=== PATIENT | male | born 1995 | race Caucasian/White ===

== ENCOUNTER 2020-10-22 07:28 | Outpatient (CLI) | payer BC, SELFPAY ==
--- NOTE | 2020-10-22 07:30 | XR_ITS ---
WS: [id number] ABDOMEN: SUPINE FILM HISTORY: KIDNEY STONE COMPARISON: 10/13/2020 Normal bowel gas pattern. No bone abnormalities. Right kidney: 3.6 mm calcification is unchanged in the mid kidney. No additional calcifications. Left kidney: No renal or ureteral stone identified. XR/XR KUB [id number] IMPRESSION: RIGHT renal calcification unchanged.
== END 2020-10-22 07:29 | disposition home or self-care (01) ==
LOC: RAD 07:36
PROVIDERS: PCP Nurse Practitioner Family; Visit Provider Urology
DX: N20.0 Calculus of kidney (principal)
CPT/HCPCS: 74018

== ENCOUNTER 2020-10-27 08:39 | Outpatient (CLI) | payer BC, SELFPAY ==
--- NOTE | 2020-10-27 10:30 | CT_ITS ---
WS: [id number] CT ABDOMEN PELVIS TECHNIQUE: Noncontrast CT of the abdomen and pelvis with coronal and sagittal reformatted images. CLINICAL INFORMATION: HX OF KIDNEY STONES COMPARISON: None. DLP: 1053.[address] scans at [facility] use at least one of these dose optimization techniques: automat ed exposure control; mA and/or kV adjustment per patient size (includes targeted exams where dose is matched to clinical indication); or iterative reconstruction. FINDINGS: Noncontrast liver is normal. Noncontrast spleen is normal. Lung bases are well aerated. Noncalcified pulmonary nodule left lower lobe laterally measuring 5 mm. Adrenal glands are normal. No hydronephros is. No obstructing renal or ureteral calculi. A few tiny nonobstructing calyceal tip calculi. Normal caliber abdominal aorta. No abdominal lymphadenopathy. No pelvic or inguinal lymphadenopathy. Incidental fat-containing umbilical hernia. CT/CT kidney stone [id number] IMPRESSION: 1. No obstructing renal or ureteral calculi. No hydronephrosis. 2. 5 mm noncalcified nodule left lower lobe laterally measuring 5 mm. Recommen d 6 month follow-up. 3. A few tiny nonobstructing calyceal tip calculi bilaterally. 4. Incidental fat-containing umbilical hernia.
== END 2020-10-27 08:40 | disposition home or self-care (01) ==
LOC: RAD 08:40
PROVIDERS: PCP Nurse Practitioner Family; Visit Provider Nurse Practitioner Family
DX: Z87.442 Personal history of urinary calculi (principal); R91.1 Solitary pulmonary nodule; K42.9 Umbilical hernia without obstruction or gangrene
CPT/HCPCS: 74176

== ENCOUNTER → 2020-10-29 09:47 | Outpatient (BNVA) | payer BC, SELFPAY | PROVIDERS: PCP Nurse Practitioner Family; Visit Provider Urology | DX: N20.9 Urinary calculus, unspecified (principal) | CPT/HCPCS: 81003 ==

== ENCOUNTER 2020-11-10 08:09 | Outpatient (CLI) | payer BC, SELFPAY ==
--- NOTE | 2020-11-10 08:14 | FL_ITS ---
WS: [id number] ESOPHAGRAM WITH FLUOROSCOPY HISTORY: GASTROESOPHAGEAL REFLUX DISEASE, DYSPHAGIA COMPARISON: None available. FLUOROSCOPY TIME: 1.2 minutes. Esophagus and swallowing function: Patient swallowed the barium mixture without difficulty. No strict ures or mucosal abnormalities are identified. Barium tablet was swallowed without difficulty. Gastroesophageal reflux: None. Hiatal hernia: No hiatal hernia. FL/FL barium swallow [id number] IMPRESSION: 1. Normal esophagram.
== END 2020-11-10 08:10 | disposition home or self-care (01) ==
PROVIDERS: PCP Nurse Practitioner Family; Visit Provider Otolaryngology
DX: K21.9 Gastro-esophageal reflux disease without esophagitis (principal); R13.12 Dysphagia, oropharyngeal phase
CPT/HCPCS: 74220

== ENCOUNTER 2022-12-30 21:23 | Emergency (ER) | payer BC, SELFPAY ==
--- NOTE | 2022-12-30 21:26 | XRR_ITS ---
PROCEDURE INFORMATION: Exam: XR Chest Exam date and time: 12/30/2022 9:32 PM Age: 27 years old Clinical indication: Pain; Chest pressure; Additional info: Cp TECHNIQUE: Imaging protocol: Radiologic exam of the chest. Views: 1 view. COMPARISON: CR XR chest 2V* [id number] 05/31/2022 11:09 AM FINDINGS: Lungs: Unremarkable. No consolidation. Pleural spaces: Unremarkable. No pleural effusion. No pneumothorax. Heart/Mediastinum: Unremarkable. No cardiomegaly. Bones/joints: Unremarkable. XR/XR chest 1V portable [id number] IMPRESSION: Unremarkable
[2022-12-30 21:35] VITALS: BP 177/125; PULSE 88; RESP 14; TEMP 36.7; O2SAT 100
--- NOTE | 2022-12-30 21:44 | ECG_ITS ---
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 Measurements Intervals [place] Rate: 90 P: 78 LA: 126 QRS: 77 QRSD: 97 T: 59 QT: 338 QTc: 414 Interpretive Statements SINUS RHYTHM NONSPECIFIC T-WAVE ABNORMALITY No previous ECG available for comparison Electronically Signed On 12-31-2022 19:43:46 CDT by Kane Wade M.D. [id number]
[2022-12-30 22:00] LABS: Basophils % 0.5 %; Eosinophils # 0.3 10^3/uL (0.0-0.8); Eosinophils % 3.3 %; Hematocrit 43.7 % (42.0-52.0); Hemoglobin 13.8 g/dL (11.7-16.6); Lymphocytes # 3.1 10^3/uL (0.8-4.8); Lymphocytes % 38.1 %; Mean Corpuscular HGB Conc 31.6 g/dL (30.0-36.0); Mean Corpuscular Hemoglobin 24.7 pg (28.0-34.0); Mean Corpuscular Volume 78.2 fl (80-94); Mean Platelet Volume 9.4 fL (7.4-10.4); Monocytes # 0.6 10^3/uL (0.2-0.9); Neutrophils # 4.19 10^3/uL (1.8-7.7); Neutrophils % 50.9 %; Nucleated Red Blood Cells % 0 %; Platelet Count 345 10^3/cmm (130-400); Red Blood Count 5.59 10^6/uL (4.1-5.3); Red Cell Distribution Width 14.6 % (12.1-15.1); White Blood Count 8.2 10^3/uL (4.0-10.0)
--- NOTE | 2022-12-30 22:20 | W.ED.CHESTPA ---
HPI - Chest Pain General: Chief Complaint: Chest Pain Stated Complaint: chest pain Time Seen by Provider: 12/30/22 22:07 History of Present Illness: 27-year-old male patient comes in today with complaints of abdominal pain midepigastric radiating through to his back. Patient reports the pains been on and off for about 3 weeks. Patient has been trying muscle rub with some relief. Patient has a history of alcoholism, and peptic ulcer disease. Patient appears nontoxic. Patient appears in no pain at this time. Associated symptoms: Reports abdominal pain (Intermittent) and nausea; Deny dyspnea, fever(s) or vomiting Review of Systems General: Reports: 10 or more systems reviewed and unremarkable except in HPI and below Const: Denies: fever(s) Card: Reports: chest pain Resp: Denies: dyspnea GI: Reports: abdominal pain (Intermittent) and nausea; Denies: vomiting, diarrhea or constipation : Denies: flank pain Musc: Denies: back pain PFSH ED PFSH: Medical History Alcoholic gastritis Chronic GERD Urolithiasis Family History Father Hypertension Social History Smoking and tobacco status: former smoker Alcohol intake: current Alcohol intake frequency: holidays/special occasions only Alcohol type: hard liquor Substance/Drug Use: never Marital status: Single Current occupational status: employed Physical Exam Const: COMMON NORMALS: alert HENMT: COMMON NORMALS: normocephalic HEAD & SCALP: normocephalic Neck/C-Spine: COMMON NORMALS: full ROM Chest: COMMONS NORMALS: normal inspection of the chest Resp: COMMON NORMALS: normal respiratory effort and clear to auscultation bilaterally AUSCULTATION: clear to auscultation bilaterally Cardio: COMMON NORMALS: regular rate RATE: regular rate GI: COMMON NORMALS: Soft to palpation and non-tender PALPATION: Yes Soft to palpation : COMMON NORMALS: Yes no CVA tenderness BLADDER/KIDNEY EXAM: Yes no CVA tenderness Back/Pelvis: COMMON NORMALS: no CVA tenderness and thoracic and lumbar spine normal to inspection Extremity: COMMON NORMALS: normal to inspection Neuro: SENSORIUM/ORIENTATION: Yes alert Skin: COMMON NORMALS: turgor normal GENERAL SKIN EXAM: turgor normal Course Vital Signs: Vital signs: Vital Signs Temperature 98.1 F 12/30/22 21:35 Pulse Rate 88 12/30/22 21:35 Respiratory Rate 14 12/30/22 21:35 Blood Pressure 177/125 12/30/22 21:35 Pulse Oximetry 100 12/30/22 21:35 Oxygen Delivery Me thod Room Air 12/30/22 21:35 MDM - Chest Pain Medical Decision Making 27-year-old male patient comes in today for complaints of abdominal pain radiating into his chest and back. On exam patient has soft abdomen with no eliciting pain to palpation. Patient reports the pain is intermittent and he does not have any at this time. Differential diagnosis includes but not limited to gallstones, pancreatitis, gastritis, constipation, bowel obstruction, renal calculi, ACS. Troponin baseline was negative. EKG was unremarkable. The remainder of labs showed no significant abnormalities. No obvious signs of biliary obstruction. KUB noted a large amount of gas in the bowel. Chest x-ray was normal. Believe the patient might have some gastritis we will go ahead and start him on some pantoprazole daily to see if we can get better control of his discomfort and use hyoscyamine as needed for spasms. Patient reported understanding of care plan and need for follow-up with primary care. Lab Data 12/30/22 21:50 12/30/22 21:50 Radiology Impressions Chest X-Ray 12/30/22 21:26 IMPRESSION: Unremarkable KUB X-Ray 12/30/22 22:34 IMPRESSION: Predominantly gaseous distention of the colon. No generalized obstruction Laboratory Results WBC 8.2 10^3/uL (4.0-10.0) 12/30/22 21:50 RBC 5.59 10^6/uL (4.1-5.3) H 12/30/22 21:50 Hgb 13.8 g/dL (11.7-16.6) 12/30/22 21:50 Hct 43.7 % (42.0-52.0) 12/30/22 21:50 MCV 78.2 fl (80-94) L 12/30/22 21:50 MCH 24.7 pg (28.0-34.0) L 12/30/22 21:50 MCHC 31.6 g/dL (30.0-36.0) 12/30/22 21:50 RDW 14.6 % (12.1-15.1) 12/30/22 21:50 Plt Count 345 10^3/cmm (130-400) 12/30/22 21:50 MPV 9.4 fL (7.4-10.4) 12/30/22 21:50 Neut % (Auto) 50.9 % 12/30/22 21:50 Lymph % (Auto) 38.1 % 12/30/22 21:50 [place] % (Auto) 7.0 % 12/30/22 21:50 Eos % (Auto) 3.3 % 12/30/22 21:50 Baso % (Auto) 0.5 % 12/30/22 21:50 Neut # (Auto) 4.19 10^3/uL (1.8-7.7) 12/30/22 21:50 Lymph # (Auto) 3.1 10^3/uL (0.8-4.8) 12/30/22 21:50 [place] # (Auto) 0.6 10^3/uL (0.2-0.9) 12/30/22 21:50 Eos # (Auto) 0.3 10^3/uL (0.0-0.8) 12/30/22 21:50 Baso # (Auto) 0.0 10^3/uL (0.0-0.1) 12/30/22 21:50 Nucleated RBC % (auto) 0 % 12/30/22 21:50 Nucleated RBCs # 0.0 /100WBC 12/30/22 21:50 Sodium 137 mmol/L (136-145) 12/30/22 21:50 Potassium 4.0 mmol/L (3.5-5.1) 12/30/22 21:50 Chloride 102 mmol/L (98-107) 12/30/22 21:50 Carbon Dioxide 22 mmol/L (22-29) 12/30/22 21:50 Anion Gap 17.0 (5-19) 12/30/22 21:50 BUN 13 mg/dL (6-20) 12/30/22 21:50 Creatinine 0.9 mg/dL (0.7-1.2) 12/30/22 21:50 GFR Calculation 99.8 mL/min (90-130) 12/30/22 21:50 Glucose 85 mg/dL (65-115) 12/30/22 21:50 Calculated Osmolality 283 mOsm/kg (285-295) L 12/30/22 21:50 Calcium 9.0 mg/dL (8.5-10.5) 12/30/22 21:50 Total Bilirubin 0.3 mg/dL (0.15-1.2) 12/30/22 21:50 AST 12 U/L (0-40) 12/30/22 21:50 ALT 14 U/L (0-41) 12/30/22 21:50 Alkaline Phosphatase 57 U/L (40-130) 12/30/22 21:50 Troponin T Baseline 6 ng/L (0-15) 12/30/22 21:50 Total Protein 7.5 g/dL (6.6-8.7) 12/30/22 21:50 Albumin 4.3 g/dL (3.5-5.2) 12/30/22 21:50 Globulin 3.2 g/dL (1.3-4.6) 12/30/22 21:50 Lipase 23 U/L (13-60) 12/30/22 21:50 Discharge Plan Discharge Patient Disposition: Home Clinical Impression: Non-cardiac chest pain Condition: Stable Prescriptions: New hyoscyamine sulfate 0.125 mg tablet 0.125 mg PO Q8H PRN (Reason: abdominal pain) Qty: 20 0RF pantoprazole 20 mg tablet,delayed release (DR/EC) 20 mg PO DAILY Qty: 30 0RF No Action Zyrtec 10 mg capsule 10 mg PO DAILY PRN tamsulosin [Flomax] 0.4 mg capsule 0.4 mg PO DAILY imiquimod 5 % cream in packet topical amoxicillin 875 mg tablet 875 mg PO BID 10 Days Qty: 20 0RF esomeprazole magnesium 40 mg capsule,delayed release(DR/EC) 40 mg PO BID Discharge Orders: Discharge ED (Routine); Ordered 12/30/22 Ordered By: Taran Mendez Referrals: Karly Dudley FNP [Primary Care Provider] - Discharge Diet: Usual diet Discharge Activity: Increase activity as tolerated Patient Instructions: Abdominal Pain (ED) Activity Restrictions/Additional Instructions: Drink plenty of water and fluids. Take pantoprazole 20 mg 1 tablet daily 30 minutes before your first meal of the day. Use hyoscyamine tablets every 8 hours as needed for abdominal pain and spasms. Follow-up with primary care in 3 to 5 days. Return to ED for worsening symptoms such as blood in vomit or stool, high fever greater than 100.4, increased shortness of breath, or new concerns. 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
[2022-12-30 22:34] LABS: Troponin(5th) Baseline 6 ng/L (0-15)
--- NOTE | 2022-12-30 22:34 | XRR_ITS ---
PROCEDURE INFORMATION: Exam: XR Abdomen Exam date and time: 12/30/2022 10:42 PM Age: 27 years old Clinical indication: Abdominal pain; Additional info: Abd pain TECHNIQUE: Imaging protocol: Radiologic exam of the abdomen. Views: Frontal supine view of the abdomen. 1 View. COMPARISON: CT kidney stone [id number] 10/27/2020 9:02 AM FINDINGS: Lungs: The lung bases are clear. Gastrointestinal tract: There is moderate gas within the colon and scattered stool. Small bowel is unremarkable. Bones/joints: Unremarkable. XR/XR KUB [id number] IMPRESSION: Predominantly gaseous distention of the colon. No generalized obstruction
[2022-12-30 22:35] LABS: Alanine Aminotransferase 14 U/L (0-41); Albumin Level 4.3 g/dL (3.5-5.2); Alkaline Phosphatase 57 U/L (40-130); Aspartate Amino Transferase 12 U/L (0-40); Blood Urea Nitrogen 13 mg/dL (6-20); Carbon Dioxide 22 mmol/L (22-29); Chloride 102 mmol/L (98-107); Globulin 3.2 g/dL (1.3-4.6); Glomerular Filtration Rate 99.8 mL/min (90-130); Glucose 85 mg/dL (65-115); Lipase 23 U/L (13-60); Osmolality Calculated 283 mOsm/kg (285-295); Sodium 137 mmol/L (136-145); Total Bilirubin 0.3 mg/dL (0.15-1.2); Total Protein 7.5 g/dL (6.6-8.7)
[2022-12-30] MEDS: pantoprazole DR 40 mg Tablet PO (23:16)
[2022-12-30] MEDS: hyoscyamine ODT 0.125 mg Tablet PO (23:16)
[2022-12-30 23:18] VITALS: PULSE 88; RESP 18; O2SAT 98
== END 2022-12-30 23:22 | disposition home or self-care (01) ==
PROVIDERS: Emergency Medicine; Emergency Provider Nurse Practitioner Family; PCP Nurse Practitioner Family
DX: R07.89 Other chest pain (principal); Z87.891 Personal history of nicotine dependence
CPT/HCPCS: 36415; 71045; 74018; 80053; 83690; 84484; 85025; 93005; 99285

== ENCOUNTER 2023-06-29 15:15 | Outpatient (CLI) | payer BC, SELFPAY ==
--- NOTE | 2023-06-29 15:22 | CTR_ITS ---
PROCEDURE INFORMATION: Exam: CT Abdomen Without And With Contrast Exam date and time: 06/29/2023 3:42 PM Age: 28 years old Clinical indication: Patient HX: Recent abnormal egd, malignant tumor of small intestine TECHNIQUE: Imaging protocol: Computed tomography of the abdomen without and with contrast. Radiation optimization: All CT scans at this facility use at least one of these dose optimization techniques: automated exposure control; mA and/or kV adjustment per patient size (includes targeted exams where dose is matched to clinical indication); or iterative reconstruction. Contrast material: OMNI 350; Contrast volume: 95 ml; Contrast route: INTRAVENOUS (IV); COMPARISON: CT kidney stone [id number] 10/27/2020 9:02 AM RADIATION DOSE METRICS: Total DLP (mGy-cm): 585.83 FINDINGS: Liver: Unremarkable Gallbladder and bile ducts: Unremarkable. No ductal dilation. Pancreas: The pancreatic head is inseparable from the soft tissue mass in the pancreaticoduodenal groove. The remainder of the pancreas is grossly unremarkable. Spleen: Unremarkable. Adrenal glands: Unremarkable. Kidneys and ureters: Small nonobstructive renal stones bilaterally measuring up to 3 mm on the right. Otherwise no evidence of renal parenchymal abnormality. No hydronephrosis or evidence of ureteral stone within the field of view. Stomach and bowel: There is a soft tissue masslike density in the region of the pancreaticoduodenal groove with mass effect on the 2nd portion of the duodenum (for example, image 31 of the axial series 5). The mass measures approximate 4 x 4 cm, though the borders of the mass are not well delineated and are indistinct from the pancreatic head. No evidence of obstruction. The appendix is not well visualized, however there are no findings to suggest appendicitis. Intraperitoneal space: No free air. No significant fluid collection. Vasculature: No aneurysmal dilatation or dissection of the aorta. Lymph nodes: There is an enlarged node just inferior to the mass. Few additional prominent gastrohepatic and portacaval nodes. Bones/joints: Unremarkable. No acute fracture. No dislocation. Soft tissues: Unremarkable. CT/CT abdomen wo/w con [id number] IMPRESSION: 1. Soft tissue mass in the pancreaticoduodenal groove with mass effect of the 2nd portion of the duodenum. A subserosal gastrointestinal stromal tumor is a consideration. Follow-up MRI of the abdomen with/without contrast is recommended.
[2023-06-29] MEDS: iohexol 350 mg/mL 500 mL Btl (per mL) PO (15:40)
[2023-06-29] MEDS: iohexol 350 mg/mL 500 mL Btl (per mL) IV (15:40)
== END 2023-06-29 15:16 | disposition home or self-care (01) ==
LOC: RAD 15:15
PROVIDERS: PCP Nurse Practitioner Family; Visit Provider Electrodiagnostic Medicine
DX: C17.9 Malignant neoplasm of small intestine, unspecified (principal); R19.09 Other intra-abdominal and pelvic swelling, mass and lump
CPT/HCPCS: 74170; Q9967

== ENCOUNTER 2025-01-27 23:08 | Emergency (ER) | payer SELFPAY ==
[2025-01-27 23:09] VITALS: BP 125/92; PULSE 90; RESP 25; TEMP 36.6; O2SAT 100; BMI 23.0
--- NOTE | 2025-01-27 23:12 | ECG_ITS ---
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 Measurements Intervals [place] Rate: 95 P: 75 IN: 143 QRS: 81 QRSD: 93 T: 70 QT: 326 QTc: 410 Interpretive Statements SINUS RHYTHM NONSPECIFIC T-WAVE ABNORMALITY INTERPRETATION BASED ON A DEFAULT AGE OF 40 YEARS Compared to ECG 12/30/2022 21:44:25 No significant changes Electronically Signed On 01-28-2025 23:50:42 CDT by Kane Wade M.D. [id number]
--- OUTSIDE RECORDS SUMMARY | 2025-01-27 23:12 | XMS_ITS | Clinical Summary ---
Author Organization [facility] Address [address] [place] [address] Phone Care Team Providers Care Chief Clinical Officer Name Role Phone Unavailable Primary Care Provider Unavailabl e Allergies No known active allergies Medications pantoprazole (PROTONIX) [address] tablet Take one tablet (40 mg total) by mouth one (1) time a day Start BID x 4 days, then daily 30 tablet 10/29/2023 Active Social History Tobacco Use Types Packs/Day Years Used Date Smoking Tobacco: Former Cigarettes Smokeless Tobacco: Never Tobacco Cessation:Counseling Given: Not Answered Alcohol Use Standard Drinks/Week Comments Not Currently 0 (1 standard drink = 0.6 oz pur e alcohol) Sex and Gender Information Value Date Recorded Sex Assigned at Not on file Legal Sex Male 9:29 PM CDT Gender Identity Not on file Sexual Orientation Not on file Last Filed Vital Signs Vital Sign Reading Time Taken Comments Blood Pressure 158/88 10/29/2023 10:17 PM CDT Pulse 83 10/29/2023 10:27 PM CDT Temperature 36.6 C (97.8 F) 10/29/2023 9:33 PM CDT Respiratory Rate 18 10/29/2023 10:27 PM CDT Oxygen Saturation 98% 10/29/2023 10:27 PM CDT Inhaled Oxygen Concentration - - Weight 72.6 kg (160 lb) 10/29/2023 9:33 PM CDT Height 180.3 cm (5' 11 ) 10/29/2023 9:33 PM CDT Body Mass Index 22.32 10/29/2023 9:33 PM CDT Plan of Treatment Health Maintenance Due Date Last Done Comments Annual Depression Screening 2004 Annual Physical 2011 Hepatitis C Antibody Screen 2011 DTap/Tdap/Td Vaccines (1 - Tdap) 2012 Flu Vaccine (#1) 01/26/2025
--- OUTSIDE RECORDS SUMMARY | 2025-01-27 23:12 | XMS_ITS | Clinical Summary ---
Author Organization [facility] Address [address] [place] [address] Phone Care Team Providers Care Watch Assembly Instructor Name Role Phone Unavailable Primary Care Provider Unavailabl e Allergies No known active allergies Medications ondansetron (ZOFRAN ODT) 4 mg Tablet, Rapid Dissolve Take 1 Tablet (4 mg) by mouth every 6 hours as needed for Nausea/Emesis . Dissolve tablet on top of tongue, then swallow with saliva. 4 Tablet 04/24/2023 Active ondansetron (ZOFRAN ODT) 4 mg Tablet, Rapid Dissolve Take 1 Tablet (4 mg) by mouth every 8 hours as needed for Nausea/Emesis . Dissolve tablet on top of tongue, then swallow with saliva. 12 Tablet 04/24/2023 Active Social History Tobacco Use Types Packs/Day Years Used Date Smoking Tobacco: Never Smokeless Tobacco: Never Tobacco Cessation:Counseling Given: Not Answered Alcohol Use Standard Drinks/Week Comments Yes 0 (1 standard drink = 0.6 oz pur e alcohol) Feeling Safe Answer Date Recorded Are you in a relationship wi th someone who hurts you emotionally and/or physically? 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 Gender Identity Not on file Sexual Orientation Not on file Last Filed Vital Signs Vital Sign Reading Time Taken Comments Blood Pressure 143/100 04/24/2023 10:00 PM DEPARTMENTAL SHIPPING CLERK Pulse 88 04/24/2023 10:00 PM DEPARTMENTAL SHIPPING CLERK Temperature 36.2 C (97.1 F) 04/24/2023 8:03 PM DEPARTMENTAL SHIPPING CLERK Respiratory Rate 18 04/24/2023 10:00 PM DEPARTMENTAL SHIPPING CLERK Oxygen Saturation 98% 04/24/2023 10:00 PM DEPARTMENTAL SHIPPING CLERK Inhaled Oxygen Concentration - - Weight 77.1 kg (170 lb) 04/24/2023 8:03 PM DEPARTMENTAL SHIPPING CLERK Height 180.3 cm (5' 11 ) 04/24/2023 8:03 PM DEPARTMENTAL SHIPPING CLERK Body Mass Index 23.71 04/24/2023 8:03 PM DEPARTMENTAL SHIPPING CLERK Plan of Treatment Health Maintenance Due Date Last Done Comments DTAP/TDAP/TD VACCINES (1 - Tdap) 2012 HEPATITIS B VACCINES (1 of 3 - 19+ 3-dose series) 04/28 HPV VACCINES (1 - 3-dose SCDM series) 2020 INFLUENZA VACCINE (#1) 2024 Insurance [employer] TRADITIONAL
--- NOTE | 2025-01-28 00:07 | XRR_ITS ---
PROCEDURE INFORMATION: Exam: XR Chest Exam date and time: 01/28/2025 1:18 AM Age: 29 years old Clinical indication: Pain; Angina pectoris; Additional info: Chest pain TECHNIQUE: Imaging protocol: Radiologic exam of the chest. Views: 1 view. COMPARISON: CR XR chest 1V portable [id number] 12/30/2022 9:32 PM FINDINGS: Lungs: No confluent consolidation. Pleural spaces: No pleural effusion. No pneumothorax is seen. Heart/Mediastinum: The heart is normal in size. Mediastinal contours are within normal limits. Bones/joints: No lytic or blastic lesions. No acute osseous abnormality. Intraperitoneal space: No free air is seen under the diaphragm. XR/XR chest 1V portable [id number] IMPRESSION: No acute pulmonary process.
[2025-01-28 01:22] VITALS: BP 133/101; PULSE 85; O2SAT 99
[2025-01-28 01:25] LABS: Hematocrit 42.4 % (37-53); Hemoglobin 13.70 g/dL (11.27-16.99); Mean Corpuscular HGB Conc 32.3 g/dL (30-55); Mean Corpuscular Hemoglobin 24.9 pg (27-33); Mean Corpuscular Volume 77.0 fl (82-101); Nucleated Red Blood Cells % 0 %; Platelet Count 307 10^3/cmm (157-399); Red Blood Count 5.51 10^6/uL (3.85-5.65); White Blood Count 7.74 10^3/uL (3.29-11.43)
--- NOTE | 2025-01-28 01:25 | W.ED.CHESTPA ---
HPI - Chest Pain General: Chief Complaint: Chest Pain Stated Complaint: CHEST PAINS Time Seen by Provider: 01/28/25 00:06 History of Present Illness: 29-year-old male presents emergency room with complaint of chest pain and epigastric discomfort this been going on for several months he said this previously at the same to resolved he had some workup for it. He previously was a heavy drinker he quit completely. Describes most of his pain is epigastric left upper quadrant radiating to his back denies any medic easy melena hematemesis or coffee-ground masses no cardiac history or history of arrhythmias. Associated symptoms: Reports abdominal pain, nausea and vomiting; Deny dyspnea or fever(s) Related Data Home Medications ?Medication ?Instructions ?Recorded ?Confirmed imiquimod 5 % topical cream packet topical 10/19/20 01/31/21 tamsulosin 0.4 mg capsule (Flomax) 0.4 mg PO DAILY 10/19/20 01/31/21 cetirizine 10 mg capsule (Zyrtec) 10 mg PO DAILY PRN 10/22/20 01/31/21 esomeprazole magnesium 40 mg 40 mg PO BID 10/29/20 01/31/21 capsule,delayed release Previous Rx's ?Medication ?Instructions ?Recorded amoxicillin 875 mg tablet 875 mg PO BID 10 days #20 tabs 01/31/21 hyoscyamine sulfate 0.125 mg tablet 0.125 mg PO Q8H PRN abdominal pain 12/30/22 #20 tabs pantoprazole 20 mg tablet,delayed 20 mg PO DAILY #30 tabs 12/30/22 release pantoprazole 40 mg tablet,delayed 40 mg PO BID 10 days #40 tabs 01/28/25 release (Protonix) sucralfate 1 gram tablet (Carafate) 1 g PO Q6H PRN dyspepsia #30 tabs 01/28/25 Allergies Allergy/AdvReac Type Severity Reaction Status Date / Time No Known Allergies Allergy Verified 01/27/25 23:23 Review of Systems Const: Denies: fever(s) or chills Card: Reports: chest pain Resp: Denies: dyspnea GI: Reports: abdominal pain, nausea and vomiting; Denies: hematemesis, coffee ground emesis, hematochezia or melena : Denies: dysuria, urinary frequency or urinary urgency Musc: Denies: neck pain or back pain Skin/Breast: Denies: rash PFSH ED PFSH: Medical History Urolithiasis Alcoholic gastritis Chronic GERD Family History Father Hypertension Social History (Updated 01/28/25 @ 01:30 by George Roach DO) Smoking and tobacco/nicotine status: former use of tobacco/nicotine Alcohol intake: former Substance/Drug Use: never Marital status: Single Current occupational status: employed Physical Exam Const: COMMON NORMALS: no acute distress GENERAL APPEARANCE: cooperative and comfortable ORIENTATION/CONSCIOUSNESS: Yes awake, Yes oriented to person, Yes oriented to place and Yes oriented to time HENMT: COMMON NORMALS: normocephalic, atraumatic and hearing grossly normal bilaterally HEAD & SCALP: normocephalic and atraumatic Resp: COMMON NORMALS: normal respiratory effort, No retractions, No use of accessory muscles and clear to auscultation bilaterally AUSCULTATION: clear to auscultation bilaterally Cardio: COMMON NORMALS: regular rate, regular rhythm and No murmurs present (Cardio) RATE: regular rate RHYTHM: regular rhythm GI: COMMON NORMALS: Soft to palpation and No hepatosplenomegaly present AUSCULTATION: Yes normoactive bowel sounds PALPATION: Yes Soft to palpation, No Tenderness to palpation present (GI), No Guarding due to palpation present (GI) and Yes No hepatosplenomegaly present Extremity: COMMON NORMALS: normal to inspection, capillary refill normal, no clubbing, cyanosis or edema, no calf tenderness and no pedal edema Neuro: SENSORIUM/ORIENTATION: Yes oriented to person, Yes oriented to place and Yes oriented to time Skin: COMMON NORMALS: no rashes or lesions noted GENERAL SKIN EXAM: no rashes or lesions noted Course Vital Signs: Vital signs: Vital Signs Temperature 97.8 F 01/27/25 23:09 Pulse Rate 90 01/27/25 23:09 Respiratory Rate 25 H 01/27/25 23:09 Blood Pressure 125/92 01/27/25 23:09 Pulse Oximetry 100 01/27/25 23:09 Oxygen Delivery Me thod Room Air 01/27/25 23:09 MDM - Chest Pain Medical Decision Making Patient given Protonix and a GI cocktail will discharge home increase his PPI to 40 twice daily for 10 days then 40 once daily Protonix also give Carafate to use as needed referred to general surgery for possible EGD. His hemoglobin is stable at this point. His BUN not significantly elevated. No evidence of GI bleed Medical Records I reviewed the patient's medical records. Lab Data I reviewed the patient's lab results. 01/28/25 01:05 01/28/25 01:05 Radiology Impressions Chest X-Ray 01/28/25 00:07 IMPRESSION: No acute pulmonary process. Laboratory Results WBC 7.74 10^3/uL (3.29-11.43) 01/28/25 01:05 RBC 5.51 10^6/uL (3.85-5.65) 01/28/25 01:05 Hgb 13.70 g/dL (11.27-16.99) 01/28/25 01:05 Hct 42.4 % (37-53) 01/28/25 01:05 MCV 77.0 fl (82-101) L 01/28/25 01:05 MCH 24.9 pg (27-33) L 01/28/25 01:05 MCHC 32.3 g/dL (30-55) 01/28/25 01:05 RDW 14.6 % (12.1-15.1) 01/28/25 01:05 Plt Count 307 10^3/cmm (157-399) 01/28/25 01:05 MPV 9.4 fL (7.4-10.4) 01/28/25 01:05 Neut % (Auto) 63.1 % 01/28/25 01:05 Lymph % (Auto) 26.5 % 01/28/25 01:05 Barron % (Auto) 7.9 % 01/28/25 01:05 Eos % (Auto) 1.8 % 01/28/25 01:05 Baso % (Auto) 0.4 % 01/28/25 01:05 Neut # (Auto) 4.89 10^3/uL (1.8-7.7) 01/28/25 01:05 Lymph # (Auto) 2.1 10^3/uL (0.8-4.8) 01/28/25 01:05 Barron # (Auto) 0.6 10^3/uL (0.2-0.9) 01/28/25 01:05 Eos # (Auto) 0.1 10^3/uL (0.0-0.8) 01/28/25 01:05 Baso # (Auto) 0.0 10^3/uL (0.0-0.1) 01/28/25 01:05 Nucleated RBC % (auto) 0 % 01/28/25 01:05 Nucleated RBCs # 0.0 /100WBC 01/28/25 01:05 Sodium 141 mmol/L (136-145) 01/28/25 01:05 Potassium 4.3 mmol/L (3.5-5.1) 01/28/25 01:05 Chloride 105 mmol/L (98-107) 01/28/25 01:05 Carbon Dioxide 23 mmol/L (22-29) 01/28/25 01:05 Anion Gap 17.3 (5-19) 01/28/25 01:05 BUN 16 mg/dL (6-20) 01/28/25 01:05 Creatinine 0.9 mg/dL (0.7-1.2) 01/28/25 01:05 GFR Calculation 98.4 mL/min (90-130) 01/28/25 01:05 Glucose 107 mg/dL (65-115) 01/28/25 01:05 Calculated Osmolality 294 mOsm/kg (285-295) 01/28/25 01:05 Calcium 9.6 mg/dL (8.5-10.5) 01/28/25 01:05 Total Bilirubin 0.3 mg/dL (0.15-1.2) 01/28/25 01:05 AST 13 U/L (0-40) 01/28/25 01:05 ALT 18 U/L (0-41) 01/28/25 01:05 Alkaline Phosphatase 65 U/L (40-130) 01/28/25 01:05 Troponin T Baseline < 6 ng/L (0-15) 01/28/25 01:05 Total Protein 7.7 g/dL (6.6-8.7) 01/28/25 01:05 Albumin 4.6 g/dL (3.5-5.2) 01/28/25 01:05 Globulin 3.1 g/dL (1.3-4.6) 01/28/25 01:05 No radiology studies performed this visit Discharge Plan Discharge Patient Disposition: Home Clinical Impression: Chest pain due to GERD Condition: Stable Prescriptions: New pantoprazole [Protonix] 40 mg tablet,delayed release (DR/EC) 40 mg PO BID 10 Days Qty: 40 0RF Rx Instructions: 1 p.o. twice daily x 10 days then 1 daily sucralfate [Carafate] 1 gram tablet 1 g PO Q6H PRN (Reason: dyspepsia) Qty: 30 0RF No Action Zyrtec 10 mg capsule 10 mg PO DAILY PRN tamsulosin [Flomax] 0.4 mg capsule 0.4 mg PO DAILY imiquimod 5 % cream in packet topical amoxicillin 875 mg tablet 875 mg PO BID 10 Days Qty: 20 0RF esomeprazole magnesium 40 mg capsule,delayed release(DR/EC) 40 mg PO BID hyoscyamine sulfate 0.125 mg tablet 0.125 mg PO Q8H PRN (Reason: abdominal pain) Qty: 20 0RF pantoprazole 20 mg tablet,delayed release (DR/EC) 20 mg PO DAILY Qty: 30 0RF Discharge Orders: Discharge ED (Routine); Ordered 01/28/25 Ordered By: George Roach Referrals: Karly Dudley FNP [Primary Care Provider, Unknown] Discharge Diet: As Directed Discharge Activity: Resume usual activity Patient Instructions: Diet for Stomach Ulcers and Gastritis (ED), GERD (Gastroesophageal Reflux Disease) (ED), Opioid Safety, Pain Management, Patient Portal & Lyric Instructions Activity Restrictions/Additional Instructions: Thank you for choosing [facility] for your healthcare needs today. It is very important that you follow up as instructed or that you return to the Emergency Department should you have concerns or if your condition changes or worsens in any way. Emergency department visits are focused on emergent conditions, in some cases you may require further evaluation on an outpatient basis. You were seen in the emergency room with complaints of stomach upset. Your history is suggestive of significant reflux and dyspepsia. Will change her stomach medicine to Protonix 40 mg 1 pill twice a day for 10 days and 1 pill daily. Add Carafate 1 every 6 hours as needed. You are given dietary instructions as well. Finally case management make arrangements for you to follow-up with general surgery for possible EGD. (Please note that included in your discharge packet is information concerning opioid safety and pain management. This information is given to all patients were discharged from the ER regardless of their discharge diagnosis or the medicines they usually take or are prescribed.) Print Language: Belgian Coding Level of Care Code ED Joint Sealer for Dolores Munoz
[2025-01-28 01:30] VITALS: PULSE 84; O2SAT 97
[2025-01-28 01:41] LABS: Troponin(5th) Baseline < 6 ng/L (0-15)
[2025-01-28 01:46] LABS: Alanine Aminotransferase 18 U/L (0-41); Albumin Level 4.6 g/dL (3.5-5.2); Alkaline Phosphatase 65 U/L (40-130); Anion Gap 17.3 (5-19); Aspartate Amino Transferase 13 U/L (0-40); Blood Urea Nitrogen 16 mg/dL (6-20); Calcium 9.6 mg/dL (8.5-10.5); Carbon Dioxide 23 mmol/L (22-29); Chloride 105 mmol/L (98-107); Creatinine Clr Calc Pharmacy 126.3545; Globulin 3.1 g/dL (1.3-4.6); Glucose 107 mg/dL (65-115); Osmolality Calculated 294 mOsm/kg (285-295); Potassium 4.3 mmol/L (3.5-5.1); Sodium 141 mmol/L (136-145); Total Protein 7.7 g/dL (6.6-8.7)
[2025-01-28 02:00] VITALS: BP 116/86; PULSE 87; O2SAT 97
[2025-01-28] MEDS: pantoprazole 40 mg SDV 80 MG IVP (02:26)
[2025-01-28] MEDS: lidocaine 2% viscous 15 ML, aluminum-mag hydrox-simethicon 30 ML, sucralfate oral liq 1 GM PO (02:26)
[2025-01-28 02:30] VITALS: BP 141/103; PULSE 94; O2SAT 98
[2025-01-28 02:53] VITALS: BP 141/103; PULSE 88; O2SAT 99
--- NOTE | 2025-01-29 07:57 | DCPLANNER ---
messaged gen surg for er f/u
== END 2025-01-28 02:56 | disposition home or self-care (01) ==
PROVIDERS: Emergency Provider Family Medicine; PCP Nurse Practitioner Family
DX: K21.9 Gastro-esophageal reflux disease without esophagitis (principal); R07.89 Other chest pain; Z87.891 Personal history of nicotine dependence
CPT/HCPCS: 36415; 71045; 80053; 84484; 85025; 93005; 96374; 99285; J2470; J9999